=== PATIENT | male | born 1990 | race American Indian/Alaskan Native ===

== ENCOUNTER 2020-07-12 10:42 | Emergency (ER) | payer SELFPAY ==
--- NOTE | 2020-07-12 11:13 | Event Note ---
ED Screening Note Date of service: 07/12/20 Time: 11:13 ED Screening Note: Patient complains of sudden onset of mid/left-sided abdominal pain x2 days States history of a rib fracture on the left side 2 months ago Heart rate noted to be around 120 on exam Patient does have significant tenderness to palpation of the abdomen This initial assessment/diagnostic orders/clinical plan/treatment(s) is/are subject to change based on patients health status, clinical progression and re- assessment by fellow clinical providers in the ED. Further treatment and workup at subsequent clinical providers discretion. Patient/guardian urged not to elope from the ED as their condition may be serious if not clinically assessed and managed. Initial orders include: Labs CT abdomen
[2020-07-12] MEDS ORDERED: SODIUM CHLORIDE 0.9% 1000 ML 1,000 ML IV ONE ×3 (11:23→12:34)
[2020-07-12] MEDS ORDERED: ONDANSETRON 4 MG/2 ML INJ IV ONE ×2 (11:23→14:27)
[2020-07-12] MEDS ORDERED: MORPHINE 4 MG/1 ML INJ IV ONE (11:23)
[2020-07-12 12:06] LABS: Basophils # (Auto) 0.1 K/mm3 (0.0-0.1); Basophils % (Auto) 0.8 % (0.0-1.8); Eosinophils # (Auto) 0.3 K/mm3 (0.0-0.4); Eosinophils % (Auto) 4.4 % (0.0-4.3); Hematocrit 53.6 % (35.5-45.6); Hemoglobin 17.4 gm/dl (11.8-15.2); Lymphocytes # (Auto) 2.6 K/mm3 (1.2-5.4); Lymphocytes % (Auto) 39.5 % (13.4-35.0); Mean Corpuscular HGB Conc 32 % (32-34); Mean Corpuscular Volume 83 fl (84-94); Monocytes # (Auto) 0.9 K/mm3 (0.0-0.8); Monocytes % (Auto) 13.2 % (0.0-7.3); Platelet Count 307 K/mm3 (140-440); Red Blood Count 6.49 M/mm3 (3.65-5.03); Red Cell Distribution Width 16.9 % (13.2-15.2)
[2020-07-12] MEDS ORDERED: diphenhydrAMINE 50 MG/ML VIAL IV ONE ×2 (12:24→15:49)
[2020-07-12] MEDS ORDERED: HYDROmorphone 1 MG/1 ML INJ IV ONE ×3 (12:24→14:11)
[2020-07-12] MEDS ORDERED: METOCLOPRAMIDE 10 MG/2 ML INJ IV ONE (12:24)
[2020-07-12 12:32] LABS: Alanine Aminotransferase 21 units/L (7-56); Albumin 5.6 g/dL (3.9-5); BUN/Creatinine Ratio 14; Bilirubin,Direct < 0.2 mg/dL (0-0.2); Blood Urea Nitrogen 24 mg/dL (9-20); Calcium 11.3 mg/dL (8.4-10.2); Hemolysis Index 26
--- NOTE | 2020-07-12 12:38 | Emergency Department Report ---
ED Abdominal Pain HPI - General Chief Complaint: Abdominal Pain Stated Complaint: ABD PAIN/SOB/FRACTURE RIB Time Seen by Provider: 07/12/20 11:09 Source: patient Mode of arrival: Ambulatory Limitations: No Limitations - History of Present Illness Initial Comments: Patient is a 29-year-old male presents emergency room complaints of left-sided abdominal pain that began 2 days ago. He has associated nausea and vomiting. He denies any diarrhea. He states he has not had a bowel movement in a week. He states that he is also been having pleuritic chest pain and states that when he takes a deep breath it also causes pain in his abdomen. He denies any fever, hematochezia, melena, hematemesis. He states that he has a history of a left sided rib fracture a couple of months ago but states he went to another hospital at that time. He denies any past medical history. He denies any abdominal surgical history. He has an allergy to Haldol and Ativan. Patient states that he has not smoked marijuana in approximately 3 months. Severity scale (0 -10): 10 - Related Data Previous Rx's Medication Instructions Recorded Last Taken Type Omeprazole 20 mg PO DAILY #30 capsule. 07/12/20 Unknown Rx Ondansetron [Zofran Odt] 4 mg PO Q8HR PRN #10 tab.rapdis 07/12/20 Unknown Rx Promethazine [Phenergan] 25 mg HI Q6HR PRN #10 supp.rect 07/12/20 Unknown Rx Sucralfate [Carafate] 1 gm PO ACHS 7 Days #21 tablet 07/12/20 Unknown Rx Allergies Allergy/AdvReac Type Severity Reaction Status Date / Time haloperidol [From Haldol] AdvReac Unknown Verified 02/29/20 06:26 lorazepam [From Ativan] AdvReac Anaphylaxis Verified 02/29/20 06:26 ED Review of Systems ROS: Stated complaint: ABD PAIN/SOB/FRACTURE RIB Other details as noted in HPI Comment: All other systems reviewed and negative ED Past Medical Hx - Past Medical History Previous Medical History?: No Additional medical history: Rhabdo Summer 2018 - Surgical History Past Surgical History?: Yes - Social History Smoking Status: Current Every Day Smoker - Medications Home Medications: Home Medications Medication Instructions Recorded Confirmed Last Taken Type Omeprazole 20 mg PO DAILY #30 capsule. 07/12/20 Unknown Rx Ondansetron [Zofran Odt] 4 mg PO Q8HR PRN #10 tab.rapdis 07/12/20 Unknown Rx Promethazine [Phenergan] 25 mg HI Q6HR PRN #10 supp.rect 07/12/20 Unknown Rx Sucralfate [Carafate] 1 gm PO ACHS 7 Days #21 tablet 07/12/20 Unknown Rx ED Physical Exam - General Limitations: No Limitations General appearance: alert, other (in distress secondary to pain, diaphoretic) - Head Head exam: Present: atraumatic, normocephalic - Eye Eye exam: Present: normal appearance - ENT ENT exam: Present: mucous membranes dry - Respiratory Respiratory exam: Present: normal lung sounds bilaterally. Absent: respiratory distress, wheezes, rales, rhonchi, stridor, chest wall tenderness, accessory muscle use, decreased breath sounds, prolonged expiratory - Cardiovascular Cardiovascular Exam: Present: normal rhythm, tachycardia, normal heart sounds. Absent: systolic murmur, diastolic murmur, rubs, gallop - GI/Abdominal GI/Abdominal exam: Present: tenderness (generalized), guarding (voluntary), hypoactive bowel sounds. Absent: distended, rebound, rigid - Neurological Exam Neurological exam: Present: alert, oriented X3 - Psychiatric Psychiatric exam: Present: normal affect, normal mood - Skin Skin exam: Present: warm, dry, intact ED Course Vital Signs 07/12/20 07/12/20 07/12/20 11:10 12:43 17:28 Temperature 98.1 F Pulse Rate 121 H 63 Respiratory 18 18 20 Rate Blood Pressure 130/93 175/83 [Right] O2 Sat by Pulse 99 100 100 Oximetry - Reevaluation(s) Reevaluation #1: 07/12/20 12:[address] Hendrix, ER attending who evaluated pt at bedside and advised to order an abdominal x-ray with chest and to order a CT chest with contrast 07/12/20 14:22 spoke with ANAMARIA reed regarding pts lack of report for the CT abd but the CT chest has been read, she states it has been sent over and is pending to be read ED Medical Decision Making - Lab Data Result diagrams: 07/12/20 11:37 07/12/20 11:37 Lab Results 07/12/20 07/12/20 07/12/20 Range/Units 11:37 11:37 11:37 WBC 6.6 (4.5-11.0) K/mm3 RBC 6.49 H (3.65-5.03) M/mm3 Hgb 17.4 H (11.8-15.2) gm/dl Hct 53.6 H (35.5-45.6) % MCV 83 L (84-94) fl MCH 27 L (28-32) pg MCHC 32 (32-34) % RDW 16.9 H (13.2-15.2) % Plt Count 307 (140-440) K/mm3 Lymph % (Auto) 39.5 H (13.4-35.0) % Cataño % (Auto) 13.2 H (0.0-7.3) % Eos % (Auto) 4.4 H (0.0-4.3) % Baso % (Auto) 0.8 (0.0-1.8) % Lymph # (Auto) 2.6 (1.2-5.4) K/mm3 Cataño # (Auto) 0.9 H (0.0-0.8) K/mm3 Eos # (Auto) 0.3 (0.0-0.4) K/mm3 Baso # (Auto) 0.1 (0.0-0.1) K/mm3 Seg Neutrophils % 42.1 (40.0-70.0) % Seg Neutrophils # 2.8 (1.8-7.7) K/mm3 Sodium 135 L (137-145) mmol/L Potassium 4.5 (3.6-5.0) mmol/L Chloride 97.8 L (98-107) mmol/L Carbon Dioxide 17 L (22-30) mmol/L Anion Gap 25 mmol/L BUN 24 H (9-20) mg/dL Creatinine 1.7 H (0.8-1.3) mg/dL Estimated GFR 58 ml/min BUN/Creatinine Ratio 14 % Glucose 119 H (75-100) mg/dL Calcium 11.3 H (8.4-10.2) mg/dL Magnesium (1.7-2.3) mg/dL Total Bilirubin 1.20 (0.1-1.2) mg/dL Direct Bilirubin < 0.2 (0-0.2) mg/dL Indirect Bilirubin 1.0 mg/dL AST 24 (5-40) units/L ALT 21 (7-56) units/L Alkaline Phosphatase 85 (35-129) units/L Total Creatine Kinase (55-170) units/L Troponin T < 0.010 (0.00-0.029) ng/mL Total Protein 10.1 H (6.3-8.2) g/dL Albumin 5.6 H (3.9-5) g/dL Albumin/Globulin Ratio 1.2 % Lipase 31 (13-60) units/L 11/12/20 Range/Units 11:37 WBC (4.5-11.0) K/mm3 RBC (3.65-5.03) M/mm3 Hgb (11.8-15.2) gm/dl Hct (35.5-45.6) % MCV (84-94) fl MCH (28-32) pg MCHC (32-34) % RDW (13.2-15.2) % Plt Count (140-440) K/mm3 Lymph % (Auto) (13.4-35.0) % Cata[place] % (Auto) (0.0-7.3) % Eos % (Auto) (0.0-4.3) % Baso % (Auto) (0.0-1.8) % Lymph # (Auto) (1.2-5.4) K/mm3 Cata[place] # (Auto) (0.0-0.8) K/mm3 Eos # (Auto) (0.0-0.4) K/mm3 Baso # (Auto) (0.0-0.1) K/mm3 Seg Neutrophils % (40.0-70.0) % Seg Neutrophils # (1.8-7.7) K/mm3 Sodium (137-145) mmol/L Potassium (3.6-5.0) mmol/L Chloride (98-107) mmol/L Carbon Dioxide (22-30) mmol/L Anion Gap mmol/L BUN (9-20) mg/dL Creatinine (0.8-1.3) mg/dL Estimated GFR ml/min BUN/Creatinine Ratio % Glucose (75-100) mg/dL Calcium (8.4-10.2) mg/dL Magnesium 2.70 H (1.7-2.3) mg/dL Total Bilirubin (0.1-1.2) mg/dL Direct Bilirubin (0-0.2) mg/dL Indirect Bilirubin mg/dL AST (5-40) units/L ALT (7-56) units/L Alkaline Phosphatase (35-129) units/L Total Creatine Kinase 462 H (55-170) units/L Troponin T (0.00-0.029) ng/mL Total Protein (6.3-8.2) g/dL Albumin (3.9-5) g/dL Albumin/Globulin Ratio % Lipase (13-60) units/L Vital Signs 07/12/20 07/12/20 07/12/20 11:10 12:43 17:28 Temperature 98.1 F Pulse Rate 121 H 63 Respiratory 18 18 20 Rate Blood Pressure 130/93 175/83 [Right] O2 Sat by Pulse 99 100 100 Oximetry - Radiology Data Radiology results: report reviewed Ordering Physician: BROOKLYN BOONE Date of Service: 07/12/20 Procedure(s): XR abd series w cxr 1V Accession Number(s): [id number] cc: BROOKLYN BOONE Fluoro Time In Minutes: ABDOMEN 3 VIEW(S) INDICATION / CLINICAL INFORMATION: Chest pain and abdominal pain. COMPARISON: None available. FINDINGS: TUBES / LINES: None. BOWEL GAS PATTERN: No significant abnormality. FREE AIR / EXTRALUMINAL GAS: None seen. ADDITIONAL FINDINGS: No significant additional findings. LUNGS: Visualized lungs show no significant abnormality. IMPRESSION: 1. No significant abnormality. Signer Name: Chris Contreras MD Signed: 07/12/2020 1:11 PM Workstation Name: [id number] Transcribed By: REJI Dictated By: Chris Contreras MD Electronically Authenticated By: Chris Contreras MD Signed Date/Time: 07/12/201310 DD/ 10 TD/TT: Ordering Physician: BROOKLYN BOONE Date of Service: 07/12/20 Procedure(s): CT chest w con Accession Number(s): [id number] cc: BROOKLYN BOONE CT CHEST WITH CONTRAST HISTORY: Pleuritic chest pain and tachycardia COMPARISON: None TECHNIQUE: Routine chest CT exam performed following intravenous contrast administration.. All CT scans at this location are performed using CT dose reduction for ALARA by means of automated exposure control. CONTRAST: 100 mL Omnipaque 300. FINDINGS: CT CHEST: Lungs: No acute findings. There is a 4 cm subpleural bleb in the anterolateral right lung. Trachea and Bronchi: No significant abnormality. Heart and Pericardium: No significant abnormality. Vasculature: No significant abnormality. Lymphatics: No lymphadenopathy. Osseous Structures: No aggressive appearing osseous lesions. Additional Findings: None IMPRESSION: 1. No acute findings. 2. 4 cm subpleural bleb in the right lung is noted. Signer Name: Chris Contreras MD Signed: 07/12/2020 1:43 PM Workstation Name: [id number] Transcribed By: REJI Dictated By: Chris Contreras MD Electronically Authenticated By: Chris Contreras MD Signed Date/Time: 07/12/20 134 DD/ 40 TD/TT: CT ABDOMEN AND PELVIS WITH CONTRAST HISTORY: mid/lower abdominal pain, worse on left COMPARISON: None. TECHNIQUE: Axial CT images were obtained through the abdomen and pelvis after 100 cc of Omnipaque 300 intravenously. Sagittal and coronal reformatted images. All CT scans at this location are performed using CT dose reduction for ALARA by means of automated exposure control. FINDINGS: CT ABDOMEN: Lung Bases: Clear. Liver: No significant abnormality. Biliary: No significant abnormality. Spleen: No significant abnormality. Unenlarged. Pancreas: No significant abnormality. Adrenals: No significant abnormality. Kidneys: No significant abnormality. Lymphatics: No lymphadenopathy. Vasculature: No significant abnormality. Bowel/Peritoneum: No significant abnormality. No free air. No free fluid. Normal appendix. CT PELVIS: : No significant abnormality. Osseous Structures: No significant abnormality. Additional Findings: None IMPRESSION: No significant abnormality. Signer Name: Harvinder Varner Jr, MD Signed: 07/12/2020 2:20 PM Workstation Name: [id number] Transcribed By: ARLYN Dictated By: HARVINDER VARNER JR, MD Electronically Authenticated By: HARVINDER VARNER JR, MD Signed Date/Time: 07/12/201419 DD/ 141 TD/TT: - Medical Decision Making Patient is a 29-year-old male presents emergency room complaints of left-sided abdominal pain that began 2 days ago. He has associated nausea and vomiting. He denies any diarrhea. He states he has not had a bowel movement in a week. He states that he is also been having pleuritic chest pain and states that when he takes a deep breath it also causes pain in his abdomen. He denies any fever, hematochezia, melena, hematemesis. He states that he has a history of a left sided rib fracture a couple of months ago but states he went to another hospital at that time. He denies any past medical history. He denies any abdominal surgical history. He has an allergy to Haldol and Ativan. Patient states that he has not smoked marijuana in approximately 3 months. vitals with tachycardia which improved upon repeat. pt is afebrile. no leukocytosis. labs show evidence of dehydration, mild renal insuffiency likely prerenal from dehydration, mild elevation in calcium and magnesium, mild elevation in CK. abdomen XR with chest:1. No significant abnormality. CT chest with contrast: 1. No acute findings. 2. 4 cm subpleural bleb in the right lung is noted. CT abd pelvis: No significant abnormality. pt given IVFs, antiemetics, pain medications. after multiple medications patient was feeling better and was able to tolerate p.o. intake. I personally saw patient drinking a cup of water and was able to keep it down without any further episodes of vomiting. Discussed all results with patient and answered questions. Patient will be referred to GI doctor and primary care physician. Advised patient that he would need to be reexamined over the next 2 days. Discussed very strict return precautions with patient. Patient given prescription for Zofran, Phenergan suppositories, Carafate, omeprazole. Advised patient Please take medication as prescribed. Increase your water intake over the next several days. Eat a bland liquid diet and slowly advance your diet as tolerated. Avoid anything sugary or greasy. Follow-up with your primary care doctor. Follow-up with a GI doctor. You need to be reexamined within in the next 2 days. Return to emergency room for any ne w or worsening symptoms. - Differential Diagnosis Obstruction, mass, gastritis, pancreatitis, cholecystitis, dissection,perf Critical care attestation.: If time is entered above; I have spent that time in minutes in the direct care of this critically ill patient, excluding procedure time. ED Disposition Clinical Impression: Dehydration, Bleb, lung Abdominal pain Qualifiers: Abdominal location: generalized Qualified Code(s): R10.84 - Generalized abdominal pain Nausea & vomiting Qualifiers: Vomiting type: unspecified Vomiting Intractability: non-intractable Qualified Code(s): R11.2 - Nausea with vomiting, unspecified Disposition: DC- TO HOME OR SELFCARE Is pt being admited?: No Does the pt Need Aspirin: No Condition: Stable Instructions: Gastritis, Adult, Abdominal Pain, Adult, [id number], Nausea and Vomiting, Adult Additional Instructions: Please take medication as prescribed. Increase your water intake over the next several days. Eat a bland liquid diet and slowly advance your diet as tolerated. Avoid anything sugary or greasy. Follow-up with your primary care doctor. Follow-up with a GI doctor. You need to be reexamined within in the next 2 days. Return to emergency room for any new or worsening symptoms. Prescriptions: Sucralfate [Carafate] 1 gm PO ACHS 7 Days #21 tablet Omeprazole 20 mg PO DAILY #30 capsule. Promethazine [Phenergan] 25 mg HI Q6HR PRN #10 supp.rect PRN Reason: Nausea And Vomiting Ondansetron [Zofran Odt] 4 mg PO Q8HR PRN #10 tab.rapdis PRN Reason: Nausea And Vomiting Referrals: PRIMARY CAREMD [Primary Care Provider] - 2-3 Days MOSES RIVERO MD [Staff Physician] - 2-3 Days [facility] [Provider Group] - 2-3 Days [facility] [Provider Group] - 2-3 Days Time of Disposition: 17:14 Print Language: SPANISH
--- NOTE | 2020-07-12 13:15 | XRay Report ---
ABDOMEN 3 VIEW(S) INDICATION / CLINICAL INFORMATION: Chest pain and abdominal pain. COMPARISON: None available. FINDINGS: TUBES / LINES: None. BOWEL GAS PATTERN: No significant abnormality. FREE AIR / EXTRALUMINAL GAS: None seen. ADDITIONAL FINDINGS: No significant additional findings. LUNGS: Visualized lungs show no significant abnormality. IMPRESSION: 1. No significant abnormality. Signer Name: Chris Contreras MD Signed: 07/12/2020 1:11 PM Workstation Name: [id number]
--- NOTE | 2020-07-12 13:48 | Cat Scan Report ---
CT CHEST WITH CONTRAST HISTORY: Pleuritic chest pain and tachycardia COMPARISON: None TECHNIQUE: Routine chest CT exam performed following intravenous contrast administration.. All CT sc ans at this location are performed using CT dose reduction for ALARA by means of automated exposure c ontrol. CONTRAST: 100 mL Omnipaque 300. FINDINGS: CT CHEST: Lungs: No acute findings. There is a 4 cm subpleural bleb in the anterolateral right lung. Trachea and Bronchi: No significant abnormality. Heart and Pericardium: No significant abnormality. Vasculature: No significant abnormality. Lymphatics: No lymphadenopathy. Osseous Structures: No aggressive appearing osseous lesions. Additional Findings: None IMPRESSION: 1. No acute findings. 2. 4 cm subpleural bleb in the right lung is noted. Signer Name: hCris Contreras MD Signed: 07/12/2020 1:43 PM Workstation Name: [id number]
[2020-07-12] MEDS ORDERED: ONDANSETRON 4 MG/2 ML INJ ONE (14:21)
--- NOTE | 2020-07-12 14:24 | Cat Scan Report ---
CT ABDOMEN AND PELVIS WITH CONTRAST HISTORY: mid/lower abdominal pain, worse on left COMPARISON: None. TECHNIQUE: Axial CT images were obtained through the abdomen and pelvis after 100 cc of Omnipaque 300 intravenously. Sagittal and coronal reformatted images. All CT scans at this location are performed using CT dose reduction for ALARA by means of automated exposure control. FINDINGS: CT ABDOMEN: Lung Bases: Clear. Liver: No significant abnormality. Biliary: No significant abnormality. Spleen: No significant abnormality. Unenlarged. Pancreas: No significant abnormality. Adrenals: No significant abnormality. Kidneys: No significant abnormality. Lymphatics: No lymphadenopathy. Vasculature: No significant abnormality. Bowel/Peritoneum: No significant abnormality. No free air. No free fluid. Normal appendix. CT PELVIS: : No significant abnormality. Osseous Structures: No significant abnormality. Additional Findings: None IMPRESSION: No significant abnormality. Signer Name: Harvinder Varner Jr, MD Signed: 07/12/2020 2:20 PM Workstation Name: [id number]
[2020-07-12] MEDS ORDERED: PROCHLORPERAZINE EDISYLATE 10 MG/2 ML VIAL IV SCH (14:30)
[2020-07-12] MEDS ORDERED: PANTOPRAZOLE 40 MG INJ IV ONE (15:49)
[2020-07-12 17:29] VITALS: BP 175/83
== END 2020-07-12 17:32 | disposition home or self-care (01) ==
LOC: ED 10:42
DX: E86.0 Dehydration (principal); R23.8 Other skin changes
CPT/HCPCS: 36415; 71260; 74022; 74177; 80048; 80076; 82550; 83690; 83735; 84484; 85025; 96361; 96374; 96375; 96376; 99285; C9113; J0780; J1170; J1200; J2270; J2405; J2765; J7030; Q9967

== ENCOUNTER 2020-07-13 16:03 | Observation (INO) | payer SELFPAY ==
--- NOTE | 2020-07-13 17:58 | Event Note ---
ED Screening Note Date of service: 07/13/20 Time: 17:57 ED Screening Note: 29-year-old -[place] male presents to the emergency room complaining of abdominal pain that is worsening. Patient was discharged here yesterday on Carafate Phenergan Zofran and omeprazole but never filled the prescriptions as he states it cost too much. This initial assessment/diagnostic orders/clinical plan/treatment(s) is/are subject to change based on patients health status, clinical progression and re-assessment by fellow clinical providers in the ED. Further treatment and workup at subsequent clinical providers discretion. Patient/guardian urged not to elope from the ED as their condition may be serious if not clinically assessed and managed. Initial orders include:
[2020-07-13 18:25] LABS: Hematocrit 49.3 % (35.5-45.6); Hemoglobin 16.3 gm/dl (11.8-15.2); Mean Corpuscular HGB Conc 33 % (32-34); Mean Corpuscular Volume 84 fl (84-94); Platelet Count 271 K/mm3 (140-440); Red Blood Count 5.89 M/mm3 (3.65-5.03); Red Cell Distribution Width 16.6 % (13.2-15.2)
[2020-07-13 18:52] LABS: Albumin 5.4 g/dL (3.9-5); Bilirubin,Direct 0.2 mg/dL (0-0.2); Calcium 10.6 mg/dL (8.4-10.2)
[2020-07-13] MEDS ORDERED: FAMOTIDINE 20 MG/2 ML INJ IV ONE (19:33)
[2020-07-13] MEDS ORDERED: SODIUM CHLORIDE 0.9% 1000 ML 1,000 ML IV ONE ×3 (19:33→22:05)
[2020-07-13] MEDS ORDERED: MORPHINE 4 MG/1 ML INJ IV ONE (19:33)
[2020-07-13] MEDS ORDERED: LIDOCAINE VISCOUS 2% 15 ML ORAL LIQD PO ONE (19:33)
[2020-07-13] MEDS ORDERED: ONDANSETRON 4 MG/2 ML INJ IV ONE (19:33)
[2020-07-13] MEDS ORDERED: ALUM-MAG HYDROXIDE-SIMETHICONE 200-200-20MG/5ML ORAL LIQD 30 ML PO ONE (19:33)
[2020-07-13] MEDS ORDERED: CYCLOBENZAPRINE 10 MG TAB PO ONE (20:47)
[2020-07-13 20:48] LABS: Bilirubin,Urine NEG (Negative); Blood,Urine SM (Negative); Color,Urine Yellow (Yellow); Hyaline Casts,Urine 8 /LPF; Mucus,Urine 2+ /HPF; Urobilinogen,Urine < 2.0 mg/dL (<2.0)
[2020-07-13 20:49] LABS: Protein,Urine >500 mg/dL (Negative)
[2020-07-13 20:58] LABS: Amphetamine Screen,Urine Negative; Benzodiazepines Screen,Urine Negative; Cocaine Screen,Urine Negative; Methadone Screen,Urine Negative; Opiate Screen,Urine Negative
[2020-07-13 21:10] LABS: Cannabinoid Screen,Urine Positive
--- NOTE | 2020-07-13 22:13 | Emergency Department Report ---
<MAGDALENA CRUZ - Last Filed: 07/13/20 23:13> ED General Adult HPI - General Chief complaint: Abdominal Pain Stated complaint: CRAMPING Source: patient Mode of arrival: Ambulatory Limitations: No Limitations - History of Present Illness Initial comments: Patient is a 29-year-old -Polish male with a history of chronic rhabdomyolysis and gastritis who presents to the ED with complaint of acute onset persistent epigastric pain that radiates to the lower abdomen and diffuse lower back pain for the last 2 days. Patient states that the pain has been persistent and intermittent and when present it is sharp, spasming and tight. 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 Patient states that he had a boxing tournament in [place] about 5 days ago. Patient denies chest pain, shortness of breath, dizziness, syncope, fever, chills, cough, nausea, vomiting, diarrhea, testicular pain, hematuria, dysuria, traumatic injury, change in vision or headache. MD Complaint: Epigastric pain; Lower back pain; diffuse muscle spasms -: Sudden, days(s) (2) Location: back, abdomen Severity scale (0 -10): 9 Quality: aching, sharp Consistency: constant Improves with: none Worsens with: none Associated Symptoms: denies other symptoms, loss of appetite. denies: confusion, chest pain, cough, diaphoresis, fever/chills, headaches, malaise, nausea/vomiting, rash, seizure, shortness of breath, syncope, weakness, other Treatments Prior to Arrival: none - Related Data Previous Rx's Medication Instructions Recorded Last Taken Type Omeprazole 20 mg PO DAILY #30 capsule.dr 07/12/20 Unknown Rx Ondansetron [Zofran Odt] 4 mg PO Q8HR PRN #10 tab.rapdis 07/12/20 Unknown Rx Promethazine [Phenergan] 25 mg [place] Q6HR PRN #10 supp.rect 07/12/20 Unknown Rx Sucralfate [Carafate] 1 gm PO ACHS 7 Days #21 tablet 07/12/20 Unknown Rx Allergies Allergy/AdvReac Type Severity Reaction Status Date / Time haloperidol [From Haldol] AdvReac Unknown Verified 02/29/20 06:26 lorazepam [From Ativan] AdvReac Anaphylaxis Verified 02/29/20 06:26 ED Review of Systems Constitutional: denies: chills, fever Eyes: denies: eye pain, eye discharge, vision change ENT: denies: ear pain, throat pain Respiratory: denies: cough, shortness of breath, wheezing Cardiovascular: denies: chest pain, palpitations Endocrine: no symptoms reported Gastrointestinal: abdominal pain. denies: nausea, vomiting, diarrhea Genitourinary: denies: urgency, dysuria Musculoskeletal: back pain (Low back diffusely), arthralgia, myalgia. denies: joint swelling Skin: denies: rash, lesions Neurological: denies: headache, weakness, paresthesias Psychiatric: denies: anxiety, depression Hematological/Lymphatic: denies: easy bleeding, easy bruising ED Past Medical Hx - Past Medical History Previous Medical History?: Yes Additional medical history: Rhabdo Summer 2018, gastritis - Surgical History Past Surgical History?: No - Social History Smoking Status: Never Smoker Substance Use Type: None - Medications Home Medications: Home Medications Medication Instructions Recorded Confirmed Last Taken Type Omeprazole 20 mg PO DAILY #30 capsule.dr 07/12/20 Unknown Rx Ondansetron [Zofran Odt] 4 mg PO Q8HR PRN #10 tab.rapdis 07/12/20 Unknown Rx Promethazine [Phenergan] 25 mg [place] Q6HR PRN #10 supp.rect 07/12/20 Unknown Rx Sucralfate [Carafate] 1 gm PO ACHS 7 Days #21 tablet 07/12/20 Unknown Rx ED Physical Exam - General Limitations: No Limitations General appearance: alert, in no apparent distress - Head Head exam: Present: atraumatic, normocephalic, normal inspection - Eye Eye exam: Present: normal appearance, PERRL, EOMI Pupils: Present: normal accommodation - ENT ENT exam: Present: normal exam, normal orophraynx, mucous membranes moist, TM's normal bilaterally, normal external ear exam - Neck Neck exam: Present: normal inspection, full ROM - Respiratory Respiratory exam: Present: normal lung sounds bilaterally. Absent: respiratory distress, wheezes, rales, rhonchi, chest wall tenderness, accessory muscle use, prolonged expiratory - Cardiovascular Cardiovascular Exam: Present: regular rate, normal rhythm, normal heart sounds. Absent: systolic murmur, diastolic murmur, rubs, gallop - GI/Abdominal GI/Abdominal exam: Present: soft, tenderness (Palpable diffuse abdominal tenderness), normal bowel sounds. Absent: guarding, rebound, rigid, hyperactive bowel sounds, hypoactive bowel sounds - Extremities Exam Extremities exam: Present: normal inspection, full ROM, normal capillary refill - Back Exam Back exam: Present: normal inspection, full ROM, tenderness (Palpable diffuse lumbosacral paraspinal musculoskeletal tenderness), muscle spasm, paraspinal tenderness. Absent: CVA tenderness (L), vertebral tenderness - Neurological Exam Neurological exam: Present: alert, oriented X3, CN II-XII intact, normal gait, reflexes normal - Psychiatric Psychiatric exam: Present: normal affect, normal mood, anxious - Skin Skin exam: Present: warm, dry, intact, normal color. Absent: rash ED Medical Decision Making - Lab Data Result diagrams: 07/13/20 18:04 07/13/20 18:04 - Medical Decision Making This is a 29-year-old -Polish male with a history of chronic rhabdomyolysis and gastritis who presents to the ED with complaint of acute onset persistent epigastric pain that radiates to the lower abdomen and diffuse lower back pain for the last 2 days. Patient states that the pain has been persistent and intermittent and when present it is sharp, spasming and tight. 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 Patient states that he had a boxing tournament in [place] about 5 days ago. Patient was initially evaluated in this ED 24 hours ago but he left AMA. In the ED, patient is alert and oriented x3 and is not in distress but anxious and crying i n pain during the physical exam. Patient was treated for pain in the ED and also given normal saline 3 L IV bolus in the ED. Lab test results were reviewed and showed acute hyponatremia of 131 mmol/L, mild hyperkalemia of 5.3 mmol/L, mild hypochloremia of 94.9 mmol/L, BUN of 36 and creatinine of 1.7 which has worsened from 24 hours ago when BUN was 24 and creatinine was 1.7, CK of 825 which has doubled from 24 hours ago when it was 462. These findings were discussed with the ED attending physician Dr. Conti who also evaluated the patient and agree with the plan of care to admit the patient to the hospital. These plans were also discussed with the patient who agreed to be admitted for further evaluation and treatment. I therefore paged and discussed the patient's case with the hospitalist physician on-call Dr. Esquivel who admitted the patient to the hospital for further treatment. - Differential Diagnosis Rhabdomyolysis; kidney injury; muscle strain; gastritis; muscle spasm; ED Disposition Clinical Impression: Renal insufficiency, Spasm of back muscles, Abdominal pain, generalized, Dehydration Rhabdomyolysis Qualifiers: Rhabdomyolysis type: non-traumatic Qualified Code(s): M62.82 - Rhabdomyolysis Renal failure Qualifiers: Renal failure chronicity: acute on chronic Acute renal failure type: unspecified Chronic kidney disease stage: unspecified stage Qualified Code(s): N17.9 - Acute kidney failure, unspecified Disposition: OP ADMIT IP TO THIS HOSP Is pt being admited?: Yes Does the pt Need Aspirin: No Condition: Critical Time of Disposition: 22:25 <BENJAMIN CONTI III - Last Filed: 07/14/20 02:17> ED Review of Systems ROS: Stated complaint: CRAMPING Other details as noted in HPI ED Course Vital Signs 07/13/20 17:01 Temperature 97.8 F Pulse Rate 61 Respiratory 20 Rate Blood Pressure 133/96 O2 Sat by Pulse 100 Oximetry - Reevaluation(s) Reevaluation #1: I reviewed the findings and management of this patient in real-time and I have personally seen and examined this patient and participated in the decision making for this patient with the midlevel. Patient is a 29-year-old male that presents emergency room with abdominal pain and body aches. Patient was seen here yesterday and discharged home. Patient had labs yesterday and the kidney function is worsening today. Patient's CK has increased. Patient will be admitted to the hospitalist service for further evaluation treatment. Patient given fluids. Patient's pain is not improving with fluids. Patient had a CT scan yesterday which was negative. We will not repeat the CT scan. I examined the patient. Patient's lung sounds are clear. Patient is tender in the left upper quadrant. Patient's CV exam is normal limits, normal S1-S2. I discussed all results with patient. I discussed plan of care with patient. Patient agrees with plan of care and admission. Patient to be admitted to the hospitalist service. 07/13/20 22:51 - Consultations Consultation #1: Hospitalist consulted for admission. Hospitalist to admit patient. 07/13/20 22:52 ED Medical Decision Making - Lab Data Result diagrams: 07/13/20 18:04 07/13/20 18:04 Critical Care Time: Yes Critical care time in (mins) excluding proc time.: 35 Critical care attestation.: If time is entered above; I have spent that time in minutes in the direct care of this critically ill patient, excluding procedure time. Critical Care Time: 35 minutes ED Disposition Is pt being admited?: Yes Does the pt Need Aspirin: No
[2020-07-13] MEDS ORDERED: SODIUM BICARBONATE 150 MEQ in DEXTROSE 5% IN WATER 1,000 ML IV ONE (22:38)
[2020-07-13] MEDS ORDERED: MORPHINE 2 MG/1 ML INJ IV PRN (23:01)
[2020-07-13] MEDS ORDERED: MAGNESIUM HYDROXIDE (MOM) ORAL LIQD UDC PO PRN (23:01)
[2020-07-13] MEDS ORDERED: ONDANSETRON 4 MG/2 ML INJ IV PRN (23:01)
[2020-07-13] MEDS ORDERED: ACETAMINOPHEN 325 MG TAB PO PRN (23:01)
--- NOTE | 2020-07-13 23:09 | History and Physical Report ---
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 Abdominal pain is said to be in the epigastric region radiating into the lower abdomen and the lower back. Patient was seen in the emergency room yesterday with similar complaints but eloped before being seen by the physician. Patient indicates that pain has been persistent and sharp since yesterday. He had been engaged in aggressive workout about a week ago because he had a box integument in [place]. He denies any fever or chills, no chest pain or shortness of breath, no nausea or vomiting, no diarrhea.No hematuria or dysuria. Workup in the Er today reveals elevated CK levels, BUN/CR is elevated . He is being admitted for Rhabdomyolysis and RICK. Past History Past Medical History: other (Gastritis) Past Surgical History: No surgical history Social history: no significant social history Family history: no significant family history Medications and Allergies Allergies Allergy/AdvReac Type Severity Reaction Status Date / Time haloperidol [From Haldol] AdvReac Unknown Verified 02/29/20 06:26 lorazepam [From Ativan] AdvReac Anaphylaxis Verified 02/29/20 06:26 Home Medications Medication Instructions Recorded Confirmed Last Taken Type Omeprazole 20 mg PO DAILY #30 capsule. 07/12/20 Unknown Rx Ondansetron [Zofran Odt] 4 mg PO Q8HR PRN #10 tab.rapdis 07/12/20 Unknown Rx Promethazine [Phenergan] 25 mg [place] Q6HR PRN #10 supp.rect 07/12/20 Unknown Rx Sucralfate [Carafate] 1 gm PO ACHS 7 Days #21 tablet 07/12/20 Unknown Rx Active Meds: Active Medications Acetaminophen (Tylenol) 650 mg PO Q4H PRN PRN Reason: Pain MILD(1-3)/Fever >100.5/PRATT Heparin Sodium (Porcine) (Heparin) 5,000 unit SUB-Q Q8HR [facility] Sodium Bicarbonate 150 meq/ (Dextrose) 1,150 mls @ 75 mls/hr IV DIRECT ONE Stop: 07/14/20 13:57 Sodium Chloride (Nacl 0.9% 1000 Ml) 1,000 mls @ 150 mls/hr IV DIRECT [facility] Magnesium Hydroxide (Milk Of Magnesia) 30 ml PO Q4H PRN PRN Reason: Constipation Morphine Sulfate (Morphine) 2 mg IV Q4H PRN PRN Reason: Pain, Moderate (4-6) Ondansetron HCl (Zofran) 4 mg IV Q8H PRN PRN Reason: Nausea And Vomiting Sodium Chloride (Sodium Chloride Flush Syringe 10 Ml) 10 ml IV BID [facility] Sodium Chloride (Sodium Chloride Flush Syringe 10 Ml) 10 ml IV PRN PRN PRN Reason: LINE FLUSH Review of Systems Constitutional: no fever, no chills Ears, nose, mouth and throat: no nasal congestion, no sore throat Cardiovascular: no chest pain, no palpitations Respiratory: no cough, no shortness of breath Gastrointestinal: abdominal pain, no nausea, no vomiting, no diarrhea Genitourinary Male: no dysuria, no hematuria, no nocturia Musculoskeletal: muscle cramps, myalgias, no neck pain, no low back pain Integumentary: no rash, no pruritis Neurological: no headaches, no confusion Psychiatric: no anxiety, no depression Exam - Constitutional Vitals: Temp Pulse Resp BP Pulse Ox 97.8 F 61 20 133/96 100 07/13/20 17:01 07/13/20 17:01 07/13/20 17:01 07/13/20 17:01 07/13/20 17:01 General appearance: Present: no acute distress, well-nourished - EENT Eyes: Present: PERRL, EOM intact. Absent: scleral icterus ENT: hearing intact, clear oral mucosa, dentition normal - Neck Neck: Present: supple, normal ROM - Respiratory Respiratory effort: normal Respiratory: bilateral: CTA - Cardiovascular Rhythm: regular Heart Sounds: Present: S1 & S2. Absent: gallop, systolic murmur, diastolic murmur, rub - Extremities Extremities: no ischemia, pulses intact, pulses symmetrical, No edema, Full ROM Peripheral Pulses: within normal limits - Abdominal General gastrointestinal: Present: soft, tender (Mild tenderness in in epigastric and left upper quadrant.), non-distended, normal bowel sounds. Absent: mass - Integumentary Integumentary: Present: clear, warm, dry. Absent: rash - Musculoskeletal Musculoskeletal: strength equal bilaterally - Psychiatric Psychiatric: appropriate mood/affect, intact judgment & insight, memory intact, cooperative - Neurologic Neurologic: CNII-XII intact, no focal deficits, moves all extremities Results - Labs CBC & Chem 7: 07/13/20 18:04 07/13/20 18:04 Labs: Abnormal lab results 07/13/20 07/13/20 07/13/20 Range/Units 18:04 18:04 18:04 RBC 5.89 H (3.65-5.03) M/mm3 Hgb 16.3 H (11.8-15.2) gm/dl Hct 49.3 H (35.5-45.6) % RDW 16.6 H (13.2-15.2) % Sodium 131 L (137-145) mmol/L Potassium 5.3 H (3.6-5.0) mmol/L Chloride 94.9 L (98-107) mmol/L Carbon Dioxide 18 L (22-30) mmol/L BUN 36 H (9-20) mg/dL Creatinine 1.7 H (0.8-1.3) mg/dL Glucose 107 H (75-100) mg/dL Calcium 10.6 H (8.4-10.2) mg/dL Total Bilirubin 1.60 H (0.1-1.2) mg/dL Total Creatine Kinase 825 H (55-170) units/L Total Protein 9.7 H (6.3-8.2) g/dL Albumin 5.4 H (3.9-5) g/dL Assessment and Plan - Patient Problems (1) Rhabdomyolysis Current Visit: Yes Status: Acute Qualifiers: Rhabdomyolysis type: non-traumatic Qualified Code(s): M62.82 - Rhabdomyolysis Plan to address problem: Patient placed on IV fluid and analgesic medications. Will monitor creatine Kinase. (2) Abdominal pain Current Visit: No Status: Acute Qualifiers: Abdominal location: generalized Qualified Code(s): R10.84 - Generalized abdominal pain Plan to address problem: Probably secondary to the rhabdomylysis. Continue on analgesic medication. (3) Renal failure Current Visit: Yes Status: Acute Qualifiers: Renal failure chronicity: acute on chronic Acute renal failure type: unspe cified Chronic kidney disease stage: unspecified stage Qualified Code(s): N17.9 - Acute kidney failure, unspecified; N18.9 - Chronic kidney disease, unspecified Plan to address problem: Will continue on IV fluid. Monitor BuN/Creatinine. Will appreciate Nephrology Input. (4) H/O gastritis Current Visit: Yes Status: Acute Plan to address problem: Will place on PPI. (5) DVT prophylaxis Current Visit: Yes Status: Acute Plan to address problem: Patient on SQ heparin. (6) Full code status Current Visit: Yes Status: Acute
[2020-07-14] MEDS: SODIUM CHLORIDE 0.9% 1000 ML 1,000 ML IV SCH ×2 (05:00→09:45)
[2020-07-14 05:35] LABS: Mean Corpuscular HGB Conc 33 % (32-34); Mean Corpuscular Volume 82 fl (84-94); Platelet Count 176 K/mm3 (140-440); Red Blood Count 4.24 M/mm3 (3.65-5.03); Red Cell Distribution Width 16.4 % (13.2-15.2)
[2020-07-14 05:39] LABS: BUN/Creatinine Ratio 22; Blood Urea Nitrogen 26 mg/dL (9-20); Calcium 8.5 mg/dL (8.4-10.2); Hemolysis Index 4
[2020-07-14 05:41] LABS: INR 1.15 (0.87-1.13)
[2020-07-14 05:50] LABS: Hemoglobin 11.6 gm/dl (11.8-15.2)
[2020-07-14 05:51] LABS: Hematocrit 34.7 % (35.5-45.6)
[2020-07-14] MEDS ORDERED: HEPARIN 5,000 UNIT/1 ML VIAL SUB-Q SCH (06:00)
[2020-07-14 06:39] LABS: Basophils % (Manual) 0 % (0.0-1.8); Monocytes % (Manual) 0 % (0.0-7.3); Total Cells Counted 100
[2020-07-14 06:40] LABS: Ovalocytes Few; Platelet Estimate Consistent w Auto; Schistocytes Few
[2020-07-14] MEDS ORDERED: PANTOPRAZOLE 40 MG INJ IV SCH (10:00)
--- NOTE | 2020-07-14 10:17 | Consultation ---
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 pylori gastritis presents on account of epigastric pain of 2 days duration. Exacerbated with low back pain. Pain was severe made him bend over. There is sharp pain during the exacerbations. Associated nausea but no vomiting. He has shortness of breath the onset of the symptoms. He noticed he has not made urine for several days now. He finally made urine today. He feels much better now. He has had recurrent episodes of this pain with constipation and no firm diagnosis has been made. His brother has similar symptoms. 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 He does not recall any injury/trauma to his body during that bout. No fever or chills. No exposure to radiocontrast or NSAIDs. Past History Past Medical History: other (Recurrent abdominal pain being worked up in [place]. EGD showed gastritis H. 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 denies: alcohol abuse, prescription drug abuse, IV drug use Family history: no significant family history, cancer (Family history of cancer), diabetes (Both parents have diabetes mellitus), hypertension (Both parents have hypertension), other (Younger brother also has recurrent abdominal pain) Medications and Allergies Allergies Allergy/AdvReac Type Severity Reaction Status Date / Time haloperidol [From Haldol] AdvReac Unknown Verified 02/29/20 06:26 lorazepam [From Ativan] AdvReac Anaphylaxis Verified 02/29/20 06:26 Home Medications Medication Instructions Recorded Confirmed Last Taken Type Omeprazole 20 mg PO DAILY #30 capsule. 07/12/20 07/14/20 Unknown Rx Ondansetron [Zofran Odt] 4 mg PO Q8HR PRN #10 tab.rapdis 07/12/20 07/14/20 Unknown Rx Promethazine [Phenergan] 25 mg [place] Q6HR PRN #10 supp.rect 07/12/20 07/14/20 Unknown Rx Sucralfate [Carafate] 1 gm PO ACHS 7 Days #21 tablet 07/12/20 07/14/20 Unknown Rx Active Meds: Active Medications Acetaminophen (Tylenol) 650 mg PO Q4H PRN PRN Reason: Pain MILD(1-3)/Fever >100.5/PRATT Last Admin: 07/14/20 09:45 Dose: 650 mg Documented by: Heparin Sodium (Porcine) (Heparin) 5,000 unit SUB-Q Q8HR [facility] Last Admin: 07/14/20 06:45 Dose: 5,000 unit Documented by: Sodium Bicarbonate 150 meq/ (Dextrose) 1,150 mls @ 75 mls/hr IV DIRECT ONE Stop: 07/14/20 13:57 Last Admin: 07/14/20 00:15 Dose: 75 mls/hr Documented by: Sodium Chloride (Nacl 0.9% 1000 Ml) 1,000 mls @ 150 mls/hr IV DIRECT [facility]IANG[facility] Last Admin: 07/14/20 09:45 Dose: 150 mls/hr Documented by: Magnesium Hydroxide (Milk Of Magnesia) 30 ml PO Q4H PRN PRN Reason: Constipation Morphine Sulfate (Morphine) 2 mg IV Q4H PRN PRN Reason: Pain, Moderate (4-6) Last Admin: 07/14/20 07:26 Dose: 2 mg Documented by: Ondansetron HCl (Zofran) 4 mg IV Q8H PRN PRN Reason: Nausea And Vomiting Pantoprazole Sodium (Protonix) 40 mg IV BID [facility] Last Admin: 07/14/20 09:45 Dose: 40 mg Documented by: Sodium Chloride (Sodium Chloride Flush Syringe 10 Ml) 10 ml IV BID [facility] Last Admin: 07/14/20 09:50 Dose: 10 ml Documented by: Sodium Chloride (Sodium Chloride Flush Syringe 10 Ml) 10 ml IV PRN PRN PRN Reason: LINE FLUSH Review of Systems All systems: negative (Constitutional: no fever but admits to chills. No anorexia or weight loss. HEENT: No sore throat or sinus drainage no hearing or vision impairment . Cardiovascular: No chest pain, admits to shortness of breath when the abdominal pain starts. No palpitations, lower extremity swelling or dizziness. Respiratory: No cough, sputum, shortness of breath, hemoptysis or wheezing. Gastrointestinal: Admits to nausea and constipation. No vomiting, diarrhea,, hematemesis or melena. Genitourinary: Patient did not make urine for almost a week to this morning. No frequency urgency dysuria or hematuria. hematologic: No abnormal bleeding or bruising. Integumentary: no pruritus or rash. Neurological: No headache no focal weakness or numbness, no syncope or seizures. Musculoskeletal: No joint pains no stiffness. Psychiatry: no anxiety or depression) Exam - Vital Signs Vital signs: Vital Signs Temp Pulse Resp BP Pulse Ox 97.8 F 61 20 133/96 100 07/13/20 17:01 07/13/20 17:01 07/13/20 17:01 07/13/20 17:01 07/13/20 17:01 - Physical Exam Narrative exam: Young muscular -Guyanese male lying in bed in no acute distress HEENT: NCAT, pink oral mucous membrane Neck: Supple, no venous distention CVS: S1S2 RRR with no murmur, rub or gallop Chest: Clear to auscultation Abdomen: Protuberant, soft, nontender, no organomegaly, bowel sounds are present Extremities: No edema Genitourinary deferred Skin warm and dry. Numerous tattoos lindsay. No rash Neuro: Awake, alert no focal deficits Results - Lab Results 07/14/20 04:59 07/14/20 04:59 Most recent lab results Calcium 8.5 mg/dL (8.4-10.2) D 07/14/20 04:59 Assessment and Plan - Patient Problems (1) Acute kidney injury Current Visit: Yes Status: Acute Plan to address problem: Acute kidney injury prerenal azotemia versus acute tubular necrosis secondary to volume depletion and rhabdomyolysis. Urinalysis however showed some proteinuria which is concerning for any baseline glomerulonephritis. Kidney function has improved. Urine output is also improving. Okay to discharge patient later today from my standpoint if he continues to improve. Continue renal work-up as an outpatient (2) Hyponatremia Current Visit: Yes Status: Acute Plan to address problem: Hypovolemic hyponatremia resolving with volume repletion (3) Hyperkalemia Current Visit: Yes Status: Acute Plan to address problem: Hypokalemia probably secondary to decreased distal delivery of sodium secondary to volume depletion which is needed for exchange for potassium. Potassium has improved with volume repletion. (4) Rhabdomyolysis Current Visit: Yes Status: Acute Qualifiers: Rhabdomyolysis type: traumatic Plan to address problem: Mild rhabdomyolysis. Probably secondary to boxing. CPK was not done today. Follow-up level (5) Abdominal pain, acute, epigastric Current Visit: Yes Status: Acute Plan to address problem: Recent diagnosis of H. pylori gastritis. CT of the abdomen nondiagnostic. Will need to continue GI work-up as an outpatient (6) Constipation Current Visit: Yes Status: Acute Plan to address problem: Laxative as needed (7) Hypercalcemia Current Visit: No Status: Acute Plan to address problem: Probably secondary to hypovolemia. Calcium has improved back to normal with volume expansion
[2020-07-14 12:00] VITALS: BP 117/70
--- NOTE | 2020-07-14 12:49 | Discharge Summary ---
Providers - Providers Date of Admission: 07/13/20 22:53 Date of discharge: 07/14/20 Attending physician: MIRELA QUEEN 07/13/20 23:01 Consult to Physician [CONS] Routine Comment: Consulting Provider: CIRA HUNTER Physician Instructions: Reason For Exam: RICK Primary care physician: SKATE MAKER Hospitalization Condition: Critical Hospital course: Discharge diagnosis: (1) Acute kidney injury, resolved Acute kidney injury prerenal azotemia versus acute tubular necrosis secondary to volume depletion and rhabdomyolysis. (2) Hyponatremia Hypovolemic hyponatremia resolving with volume repletion (3) Hyperkalemia Hypokalemia probably secondary to decreased distal delivery of sodium secondary to volume depletion which is needed for exchange for potassium. Potassium has improved with volume repletion. (4) Rhabdomyolysis Mild rhabdomyolysis. Probably secondary to boxing. (5) Abdominal pain, acute, epigastric Recent diagnosis of H. pylori gastritis. CT of the abdomen nondiagnostic. Will need to continue GI work-up as an outpatient (6) Constipation Laxative as needed (7) Hypercalcemia Probably secondary to hypovolemia. Calcium has improved back to normal with volume expansion Disposition: DC-01 TO HOME OR SELFCARE Time spent for discharge: 34 minutes Core Measure Documentation - Palliative Care Palliative Care/ Comfort Measures: Not Applicable - Core Measures Any of the following diagnoses?: none Exam - Constitutional Vitals: Temp Pulse Resp BP Pulse Ox 98.9 F 68 18 117/70 98 07/14/20 11:25 07/14/20 11:25 07/14/20 11:25 07/14/20 11:25 07/14/20 11:25 Plan Follow up with: PRIMARY CAREMD [Primary Care Provider] - 3-5 Days
== END 2020-07-14 13:20 | disposition home or self-care (01) ==
LOC: ED 16:03 → 3A 22:53 → 4A 07-14 00:47
PROVIDERS: ADMIT Internal Medicine Geriatric Medicine; ATTEND Internal Medicine
DX: M62.82 Rhabdomyolysis (principal); N17.9 Acute kidney failure, unspecified; K29.70 Gastritis, unspecified, without bleeding; E87.1 Hypo-osmolality and hyponatremia; E87.5 Hyperkalemia; K59.00 Constipation, unspecified; E83.52 Hypercalcemia; F17.210 Nicotine dependence, cigarettes, uncomplicated; Z79.899 Other long term (current) drug therapy
CPT/HCPCS: 36415; 80048; 80076; 80307; 81001; 82550; 85025; 85027; 85610; 96361; 96365; 96366; 96372; 96375; 96376; 99291; 99406; C9113; G0378; J1644; J2270; J2405; J7030; J7070; 80320; 85007; G0480